=== PATIENT | male | born 1980 | race Caucasian/White ===

== ENCOUNTER 2018-03-15 17:30 | Emergency (ER) | payer OTHER, BC ==
[2018-03-15 17:55] VITALS: BP 100/60; PULSE 103; BMI 31.8
[2018-03-15] MEDS ORDERED: METHOCARBAMOL 500 MG TABLET PO ONE (18:04)
[2018-03-15] MEDS ORDERED: NAPROXEN 500 MG TABLET (FP) PO ONE (18:04)
--- NOTE | 2018-03-15 18:08 | PDOC ---
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 Pain is worse if he tries to move the L shoulder and shoots down to the upper arm when L shoulder is abducted. NO other complaints today, no neck garcia, no headache, no head trauma, no numbness anywhere, no weakness, no other complaints today <Jeanette David - Last Filed: 03/15/18 19:30> - General Chief Complaint: Injury Stated Complaint: LEFT SHOULDER SPRAIN/WORKING FIRE Time Seen by Provider: 03/15/18 17:44 Past History <Kerry Bland - Last Filed: 03/15/18 18:46> - Past Medical History COPD: No Other medical history: RT SHOULDER/ SINUS SURGERY - Surgical History Abdominal Surgery: Yes (hernia) - Immunization History Immunization Up to Date: Yes - Suicide/Smoking/Psychosocial Hx Smoking History: Current every day smoker Have you smoked in the past 12 months: No Information on smoking cessation initiated: No Hx Alcohol Use: No Drug/Substance Use Hx: No Substance Use Type: Alcohol <Jeanette David - Last Filed: 03/15/18 19:30> - Past Medical History Allergies/Adverse Reactions: Allergies Allergy/AdvReac Type Severity Reaction Status Date / Time sesame seed Allergy Verified 10/21/17 11:10 Home Medications: Ambulatory Orders Naproxen [Naprosyn -] 500 mg PO BID #30 tablet 10/21/17 Methocarbamol [Robaxin-750] 750 mg PO TID 3 Days #15 tablet 03/15/18 Naproxen 500 mg PO TID 3 Days #15 tablet 03/15/18 Review of Systems - Review of Systems Able to Perform ROS?: Yes Constitutional: No: Chills, Fever, Malaise, Night Sweats HEENTM: No: Eye Pain, Recent change in vision, Throat Pain Respiratory: No: Cough, Shortness of Breath Cardiac (ROS): No: Chest Pain, Palpitations, Chest Tightness ABD/GI: No: Diarrhea, Nausea, Vomiting, Abdominal cramping : No: Dysuria, Hematuria Musculoskeletal: No: Back Pain Integumentary: No: Rash Neurological: No: Headache, Numbness, Dizziness Psychiatric: No: Change in Appetite Endocrine: No: Unexplained Weight Loss <Jeanette David - Last Filed: 03/15/18 19:30> *Physical Exam - Vital Signs Last Vital Signs Temp Pulse Resp BP Pulse Ox 103 H 16 100/60 97 03/15/18 17:51 03/15/18 17:51 03/15/18 17:51 03/15/18 17:51 <Baldo,Kerry - Last Filed: 03/15/18 18:46> - Vital Signs Last Vital Signs Temp Pulse Resp BP Pulse Ox 103 H 16 100/60 97 03/15/18 17:51 03/15/18 17:51 03/15/18 17:51 03/15/18 17:51 - Physical Exam General Appearance: Yes: Nourished. No: Apparent Distress HEENT: positive: [place], Normal ENT Inspection, Normal Voice. negative: Pale Conjunctivae, Scleral Icterus (R), Scleral Icterus (L) Neck: positive: Supple. negative: Decreased range of motion, Tender midline Respiratory/Chest: positive: Lungs Clear, Normal Breath Sounds. negative: Respiratory Distress, Accessory Muscle Use Cardiovascular: positive: Regular Rhythm, Regular Rate Musculoskeletal: positive: Other (L shoulder with mild swelling anteriorly and tenderness diffusely, no focal tenderness, (+)drop arm test. unable to abduct above 90 degrees. Limited ROM due to pain. 5/5 strength, full sensory function upper extremities, good cap refill, equal pulses). negative: CVA Tenderness, Decreased Range of Motion Extremity: positive: Normal Capillary Refill, Normal Inspection, Normal Range of Motion. negative: Tender, Pedal Edema Integumentary: positive: Normal Color, Dry. negative: Jaundice, Rash Neurologic: positive: Fully Oriented, Alert, Normal Mood/Affect <Jeanette David - Last Filed: 03/15/18 19:30> Moderate Sedation - Procedure Monitoring Vital Signs: Procedure Monitoring Vital Signs Temperature Pulse Rate 103 H 03/15/18 17:51 Respiratory Rate 16 03/15/18 17:51 Blood Pressure 100/60 03/15/18 17:51 O2 Sat by Pulse Oximetry (%) 97 03/15/18 17:51 <Kerry Bland - Last Filed: 03/15/18 18:46> - Procedure Monitoring Vital Signs: Procedure Monitoring Vital Signs Temperature Pulse Rate 103 H 03/15/18 17:51 Respiratory Rate 16 03/15/18 17:51 Blood Pressure 100/60 03/15/18 17:51 O2 Sat by Pulse Oximetry (%) 97 03/15/18 17:51 <Jeanette David - Last Filed: 03/15/18 19:30> Medical Decision Making - Medical Decision Making 03/15/18 19:28 37 yo M w/ shoulder injury, likely rotator cuff injury. WIll do an xray R/O bony injury. WIll give NSAIDs and robaxin. xrays without fractures. Pt declines sling. He will follow up with his orthopedist. RICE PMD and ortho follow up Return for worsening/concerning symptoms Pt verbalizes understanding and agrees with plan Vitals repeated. HR 91. O2sat 98%. 03/15/18 19:30 <FrankieJeanette gerard - Last Filed: 03/15/18 19:30> *DC/Admit/Observation/Transfer <Kerry Bland - Last Filed: 03/15/18 18:46> <Jeanette David - Last Filed: 03/15/18 19:30> Diagnosis at time of Disposition: Shoulder injury Qualifiers: Encounter type: initial encounter Laterality: left Qualified Code(s): S49.92XA - Unspecified injury of left shoulder and upper arm, initial encounter - Discharge Dispostion Disposition: HOME Condition at time of disposition: Stable - Prescriptions Prescriptions: Methocarbamol [Robaxin-750] 750 mg PO TID 3 Days #15 tablet Naproxen 500 mg PO TID 3 Days #15 tablet - Patient Instructions Printed Discharge Instructions: DI for Shoulder Pain Additional Instructions: Apply ice for the first 48hours, then you may apply warm compresses. Follow up with your PCP in 1-2 days and follow up with your orthopedist in case you need an MRI to R/O soft tissue injury. Return for worsening/concerning symptoms
== END 2018-03-15 19:18 | disposition home or self-care (01) ==
LOC: JERFT 17:30
DX: S43.492A Other sprain of left shoulder joint, initial encounter (principal); S46.012A Strain of muscle(s) and tendon(s) of the rotator cuff of left shoulder, initial encounter; X50.0XXA Overexertion from strenuous movement or load, initial encounter; X02.8XXA Other exposure to controlled fire in building or structure, initial encounter; Y93.89 Activity, other specified; Y92.038 Other place in apartment as the place of occurrence of the external cause; Y99.0 Civilian activity done for income or pay
CPT/HCPCS: 73030-TC-LT-FY; 99281-25

== ENCOUNTER 2018-10-20 15:34 | Emergency (ER) | payer OTHER, BC ==
--- NOTE | 2018-10-20 15:49 | PDOC ---
Rapid Medical Evaluation Time Seen by Provider: 10/20/18 15:47 Medical Evaluation: Allergies Allergy/AdvReac Type Severity Reaction Status Date / Time sesame seed Allergy Verified 10/21/17 11:10 10/20/18 15:47 CC: "I have a marble sized mass near my belly button." PE: reproducible 0.5cm circular hernia to 7 o'clock position of umbilicus Orders: nothing Patient will proceed to ED for continued evaluation. Discharge Disposition - Diagnosis Umbilical hernia - Referrals - Patient Instructions - Post Discharge Activity
[2018-10-20 15:51] VITALS: BP 112/69; PULSE 102; TEMP 98.4; BMI 31.8
--- NOTE | 2018-10-20 16:32 | PDOC ---
History of Present Illness - General Chief Complaint: Pain Stated Complaint: YFD ON DUTY Time Seen by Provider: 10/20/18 15:47 - History of Present Illness Initial Comments: 10/20/18 16:30 38-year-old male felt a pop in his abdomen while doing lifting today at work hernia was reduced in triage he has no pain at this time Past History - Past Medical History Allergies/Adverse Reactions: Allergies Allergy/AdvReac Type Severity Reaction Status Date / Time sesame seed Allergy Verified 10/20/18 15:51 Home Medications: Ambulatory Orders Naproxen [Naprosyn -] 500 mg PO BID #30 tablet 10/21/17 Methocarbamol [Robaxin-750] 750 mg PO TID 3 Days #15 tablet 03/15/18 Naproxen 500 mg PO TID 3 Days #15 tablet 03/15/18 Asthma: Yes COPD: No - Surgical History Abdominal Surgery: Yes (hernia) - Immunization History Immunization Up to Date: Yes - Suicide/Smoking/Psychosocial Hx Smoking History: Current some day smoker Have you smoked in the past 12 months: No Cigars Per Day: 1 Information on smoking cessation initiated: No Hx Alcohol Use: No Drug/Substance Use Hx: No Substance Use Type: Alcohol Review of Systems - Review of Systems ABD/GI: Yes: See HPI *Physical Exam - Vital Signs Last Vital Signs Temp Pulse Resp BP Pulse Ox 98.4 F 102 H 112/69 94 L 10/20/18 15:49 10/20/18 15:49 10/20/18 15:49 10/20/18 15:49 - Physical Exam Comments: 10/20/18 16:31 Abdominal wall is soft and nontender. There is a defect in the superior aspect of the abdominal wall which is palpable and nontender there is no reducible hernia or palpable hernias at this time Medical Decision Making - Medical Decision Making 10/20/18 16:29 38-year-old male with reducible anterior abdominal wall hernia I will have him follow-up with general surgery *DC/Admit/Observation/Transfer Diagnosis at time of Disposition: Umbilical hernia - Discharge Dispostion Disposition: HOME Condition at time of disposition: Stable Decision to Admit order: No - Referrals Referrals: Steven Ahmadi MD [Primary Care Provider] - Lance Ravi MD [Staff Physician] - - Patient Instructions Printed Discharge Instructions: Abdominal Hernia Additional Instructions: Return to the emergency room for worsening symptoms and follow-up with her primary care physician as well as general surgeon in 1-2 days for further evaluation and treatment options. Continue with the use of the home abdominal binder that you have. Avoid heavy lifting. Work note was provided until cleared by physician. - Post Discharge Activity Forms/Work/School Notes: Back to Work
== END 2018-10-20 16:35 | disposition home or self-care (01) ==
LOC: JERFT 15:34
DX: K42.9 Umbilical hernia without obstruction or gangrene (principal); F17.210 Nicotine dependence, cigarettes, uncomplicated
CPT/HCPCS: 99281-25

== ENCOUNTER 2021-02-11 16:12 | Emergency (ER) | payer BC, OTHER ==
[2021-02-11 16:33] VITALS: TEMP 98.6; BMI 31.8
[2021-02-11] MEDS ORDERED: CASIRIVIMAB/IMDEVIMAB 10 ML in SODIUM CHLORIDE 100 ML IVPB ONE (17:02)
[2021-02-11 19:04] VITALS: BP 107/66; PULSE 90
== END 2021-02-11 19:13 | disposition home or self-care (01) ==
LOC: JER 16:12
DX: U07.1 COVID-19 (principal)
CPT/HCPCS: 99284-25; Q0240

== ENCOUNTER 2023-03-30 12:20 | Emergency (ER) | payer BC, OTHER ==
[2023-03-30 12:29] VITALS: BP 117/74; PULSE 93; RESP 18; TEMP 97.8; BMI 31.8
[2023-03-30] MEDS ORDERED: KETOROLAC TROMETHAMINE 30 MG/1 ML VIAL ONE (12:35)
[2023-03-30] MEDS ORDERED: KETOROLAC TROMETHAMINE 30 MG/1 ML VIAL IM ONE (12:37)
== END 2023-03-30 12:48 | disposition home or self-care (01) ==
LOC: JERFT 12:20
PROC: 3E0233Z Introduction of Anti-inflammatory into Muscle, Percutaneous Approach (ICD-10-PCS; principal; 2023-03-30)
DX: M25.512 Pain in left shoulder (principal); M79.602 Pain in left arm; X50.0XXA Overexertion from strenuous movement or load, initial encounter; Y93.89 Activity, other specified
CPT/HCPCS: 99284-25

== ENCOUNTER 2023-08-15 17:59 | Emergency (ER) | payer BC, OTHER ==
[2023-08-15 18:13] VITALS: BP 107/65; RESP 20; BMI 32.5
[2023-08-15] MEDS ORDERED: LIDOCAINE 4% PATCH TP ONE (18:47)
[2023-08-15] MEDS ORDERED: KETOROLAC TROMETHAMINE 30 MG/1 ML VIAL ONE (18:48)
[2023-08-15] MEDS: KETOROLAC TROMETHAMINE 30 MG/1 ML VIAL IM ONE (19:07)
[2023-08-15] MEDS: SODIUM CHLORIDE 0.9% 500 ML INFUS.BAG IV ONE ×3 (19:07→21:10)
[2023-08-15] MEDS: LIDOCAINE 5% TOPICAL PATCH TP ONE ×2 (19:08)
[2023-08-15 19:15] LABS: VENOUS BASE EXCESS -0.8 mmol/L (-2-2); VENOUS O2 SATURATION 57.2 % (70-80); VENOUS PCO2 44.8 mmHg (38-52); VENOUS PH 7.363 (7.310-7.410)
[2023-08-15 19:16] LABS: BASO % 0.6 % (0-2.0); EOS % 3.3 % (0-4.5); HEMATOCRIT 47.9 % (35.4-49); HEMOGLOBIN 15.9 GM/dL (11.7-16.9); LYMPH % 25.7 % (8-40); MCHC 33.2 g/dl (32.0-35.9); MEAN CELL VOLUME 81.1 fl (80-96); MEAN PLT VOLUME 8.1 fl (7.5-11.1); NEUT % 63.4 % (42.8-82.8); PLATELET COUNT 204 10^3/uL (134-434); RBC 5.91 M/mm3 (4.00-5.60); RDW 14.2 % (11.9-15.9); WHITE BLOOD COUNT 8.7 K/mm3 (4.0-10.0)
[2023-08-15 19:34] LABS: POTASSIUM 3.9 mmol/L (3.5-5.1)
[2023-08-15 19:36] LABS: ALBUMIN 4.1 g/dl (3.4-5.0); BLOOD UREA NITROGEN 28.4 mg/dL (7-18); CALCIUM 9.2 mg/dL (8.5-10.1)
[2023-08-15 19:39] LABS: CREATININE 1.5 mg/dL (0.55-1.3)
[2023-08-15 19:41] LABS: BILIRUBIN,TOTAL 0.4 mg/dL (0.2-1)
[2023-08-15 19:58] LABS: ARTERIAL BLD GAS O2 SATURATION 97.1 % (95-98); ARTERIAL BLOOD GAS BASE EXCESS -2.1 mmol/L (-2-2); ARTERIAL BLOOD GAS PO2 92.2 mmHg (80-100); ARTERIAL BLOOD GAS pH 7.399 (7.350-7.450)
[2023-08-15 20:53] VITALS: PULSE 92
[2023-08-15] MEDS ORDERED: LIDOCAINE PATCH REMOVAL MC SCH ×2 (22:00)
== END 2023-08-15 22:51 | disposition home or self-care (01) ==
LOC: JER 17:59
PROC: 3E0133Z Introduction of Anti-inflammatory into Subcutaneous Tissue, Percutaneous Approach (ICD-10-PCS; principal; 2023-08-15)
DX: T67.5XXA Heat exhaustion, unspecified, initial encounter (principal); M62.82 Rhabdomyolysis; R79.89 Other specified abnormal findings of blood chemistry; M25.511 Pain in right shoulder; M25.512 Pain in left shoulder; R53.83 Other fatigue; E86.0 Dehydration; R00.0 Tachycardia, unspecified; X08.8XXA Exposure to other specified smoke, fire and flames, initial encounter; Y99.0 Civilian activity done for income or pay
CPT/HCPCS: 36415; 36600; 80053; 82375; 82550; 82553; 82803; 85025; 99284-25

== ENCOUNTER 2024-05-23 19:26 | Emergency (ER) | payer BC, OTHER ==
[2024-05-23 19:57] VITALS: BP 114/84; PULSE 92; RESP 18; TEMP 98.4; BMI 31.8
[2024-05-23] MEDS ORDERED: IBUPROFEN 600 MG TABLET (FP) PO ONE (21:05)
[2024-05-23] MEDS ORDERED: METHOCARBAMOL 500 MG TABLET ONE (21:07)
[2024-05-23] MEDS: METHOCARBAMOL 500 MG TABLET PO ONE (21:14)
[2024-05-23] MEDS: IBUPROFEN 600 MG TABLET (FP) PO ONE (21:14)
== END 2024-05-23 22:50 | disposition home or self-care (01) ==
LOC: JER 19:26
DX: M25.511 Pain in right shoulder (principal); M25.512 Pain in left shoulder; M25.611 Stiffness of right shoulder, not elsewhere classified; M25.612 Stiffness of left shoulder, not elsewhere classified; W10.8XXA Fall (on) (from) other stairs and steps, initial encounter
CPT/HCPCS: 73030-TC-LT-FY; 73030-TC-RT-FY; 99284-25